=== PATIENT | female | born 1990 | race Caucasian/White ===

== ENCOUNTER 2018-07-03 13:00 | Observation (INO) | payer BC ==
--- OUTSIDE RECORDS SUMMARY | 2018-07-03 13:05 | XMS REPORT | Continuity of Care Document ---
:1990 External Reference #:[id number] Author Name RoberthMohini ji Care Team Providers Name Role Phone Leonila Palacios MD Primary Care Physician Unavailable Payers Type Date Identification Numbers Payment Provider Subscriber Policy Number: [id number] [employer] Katie Clarke PayID: [id number] [address] [address] [place] [address] Advance Directives Description No Information Available Problems Description No Information Family History Date Family Member(s) Problem(s) Comments Father Alive And Well Mother Alive And Well Social History Type Date Description Comments Sex Unknown Marital Status Occupation Currently Working ETOH Use Drinks 2 Alcoholic Beverages Per Week Tobacco Use Start: Unknown Patient has never smoked Smoking Status Reviewed: 07/02/18 Patient has never smoked Exercise Type/Frequency Exercises regularly Allergies, Adverse Reactions, Alerts Description No Known Drug Allergies Medications Medication Date Status Form Strength Qnty SIG Indications Ordering Provider Loestrin /0 Active Tablets 1.5-30mg-mc take as Unknown 1.5/30 (21) 000 g directed Immunizations Description No Information Available Vital Signs Date Vital Result Comment 07/02/2018 10:58am Height 66 inches 5'6" Weight 145.00 lb Heart Rate 78 /min BP Systolic Sitting 102 mmHg BP Diastolic Sitting 66 mmHg Respiratory Rate 16 /min Body Temperature 98.2 F BMI (Body Mass Index) 23.4 kg/m2 Results Description No Information Available Procedures Description No Information Available Encounters Description No Information Available Plan of Treatment 07/02/2018 - Shai Gomez, MDR10.11 Right upper quadrant painNew Labs: Liver Function Panel, Scheduled: 07/02/18Basic Metabolic Panel, Scheduled: 07/02Amylase, Scheduled: 07/02/18Lipase, Scheduled: 07/02/18CBC Auto Diff, Scheduled: 07/02/18Comments:concern for cholecystitis, will check labs-cbc,lfts, amylase lipase, as well as ultrasound, possible ct scan
[2018-07-03] MEDS ORDERED: Acetaminophen TAB* 325 MG PO PRN (14:32)
[2018-07-03] MEDS ORDERED: Morphine VIAL* 4 MG/ML VIAL (1 ml vial) IV PRN (14:33)
[2018-07-03] MEDS ORDERED: Ondansetron INJ* 2 MG/ML VIAL IV PRN ×2 (14:33→17:52)
[2018-07-03] MEDS ORDERED: Piperacillin/Tazobac ADVAN(*) 3.375 GM in NS 0.9% 100 ML* 100 ML IVPB ONE (15:00)
[2018-07-03] MEDS ORDERED: Propofol* 10 MG/ML 20 ML BTL ONE ×2 (15:32→18:07)
[2018-07-03] MEDS ORDERED: Lidocaine 2% PF * 5 ML VIAL ONE (15:32)
[2018-07-03] MEDS ORDERED: fentaNYL* 50 MCG/ML 2 ML VIAL (100 MCG VIAL) ONE (15:32)
[2018-07-03] MEDS ORDERED: Cisatracurium* 2 MG/ML MDV 5 ML ONE (15:32)
[2018-07-03] MEDS ORDERED: Midazolam* 1 MG/ML 5 ML VIAL (5 MG) ONE (15:32)
[2018-07-03] MEDS ORDERED: Dexamethasone IV* 4 MG/ML 1 ML (4 MG) ONE (15:32)
[2018-07-03] MEDS ORDERED: Ondansetron INJ* 2 MG/ML VIAL ONE (15:32)
[2018-07-03] MEDS ORDERED: Remifentanil* 2 MG VIAL ONE (16:01)
[2018-07-03] MEDS ORDERED: Sodium Chloride 0.9%* 10 ML ONE (16:01)
[2018-07-03] MEDS ORDERED: Propofol* 500 MG/50 ML BTL ONE (16:01)
[2018-07-03] MEDS ORDERED: Ketorolac INJ* 30 MG/ML 1 ML VIAL ONE (17:38)
[2018-07-03] MEDS ORDERED: Naloxone* 0.4 MG/ML 1 ML VIAL IV PRN (17:52)
[2018-07-03] MEDS ORDERED: fentaNYL* 50 MCG/ML 2 ML VIAL (100 MCG VIAL) IV PRN (17:52)
[2018-07-03] MEDS ORDERED: HYDROcodone/ACETAMIN 5-325 MG* 1 TAB PO PRN (18:57)
[2018-07-03] MEDS ORDERED: Hydrocodone/Acetamin 10/325 1 TAB PO ONE (22:54)
[2018-07-03] MEDS: HYDROcodone/ACETAMIN 5-325 MG* 1 TAB PO PRN (22:55)
[2018-07-04] MEDS: HYDROcodone/ACETAMIN 5-325 MG* 1 TAB PO PRN (10:06)
--- NOTE | 2018-07-04 10:08 | OP ---
DATE OF OPERATION: 07/03/18 - ROOM #334 DATE OF : [birth year] SURGEON: Shai Gomez MD PRE-OP DIAGNOSIS: Appendicitis. POST-OP DIAGNOSIS: Appendicitis. OPERATIVE PROCEDURE: Laparoscopic appendectomy. INDICATIONS FOR PROCEDURE: Appendicitis by clinical exam and CT scan. Risks of surgery included but not limited to bleeding, infection, injury to intraabdominal contents including the bowel were explained to the patient who seemed understanding and agreed for the procedure and all questions were answered. DESCRIPTION OF PROCEDURE: The patient was taken to the operating room, placed supine. Preoperative antibiotics were given. After the successful induction of general endotracheal anesthesia, the abdomen was prepped and draped in sterile fashion. A time-out was performed identifying correct patient and procedure. A left lower quadrant 5 mm incision was made after local was applied and using an Optiview 5 mm port, the peritoneal cavity was entered. Pneumoperitoneum was achieved at 15 mmHg. A camera was placed in the abdomen. The abdomen was scanned. There was no obvious injury from trocar placement. A 12 mm umbilical trocar was placed and a 5 mm suprapubic trocar was placed all under direct visualization of the camera. She was placed in the Trendelenburg position, tilted slightly towards the left. The cecum was gently immobilized medially revealing the base of the appendix, which was obviously inflamed and adhered to the lateral and posterior peritoneal wall. The base was isolated and divided using a stapler. The appendix was then gently from the lateral and posterior wall using blunt dissection. The mesoappendix was then divided with 2 staple loads. A clip was placed on an oozing vessel. There was no further bleeding. The appendix was placed in an endobag and removed through the umbilical port site. The right lower quadrant was irrigated and aspirated dry. EBL minimal. Hemostasis was intact. There was no abscess. Some fluid from the pelvis was aspirated. There was no purulence. The fallopian tube and ovary appeared normal on both sides. The abdomen was scanned. There was no obvious injury noted or other abnormalities. Pneumoperitoneum was released from the abdomen. The midline fascia was closed with a single 0 Vicryl stitch. Skin was closed with Monocryl and then glue. She tolerated the procedure well. She was extubated and taken to recovery in stable condition. [id number]/[facility] #: [id number] [facility]
[2018-07-04 10:24] VITALS: BP 102/62
--- NOTE | 2018-07-04 16:16 | DS ---
CC: Dr. Leonila Palacios * DISCHARGE SUMMARY: DATE OF ADMISSION: 07/03/18 DATE OF DISCHARGE: 07/04/18 ATTENDING SURGEON: Dr. Shai Gomez.* (DICTATED BY ZAIRE REDMAN NP) HOSPITAL COURSE: Please refer to admission history and physical for admission details. The patient was taken to the operating room on 07/03/18 and underwent laparoscopic appendectomy. She has had an uneventful postoperative course, and as of the morning of discharge, was eating a regular diet, ambulating in the halls, urinating in large amounts, and had good pain control. PHYSICAL EXAMINATION: Afebrile. Vital signs are stable. Lungs: Breath sounds bilaterally clear and equal. Heart: Regular rate and rhythm. No murmurs or rubs. Abdomen: Active bowel sounds. Laparoscopic incision sites are intact with Dermabond glue; there is no surrounding erythema or drainage. There is appropriate incisional tenderness. Extremities: Nontender calves. IMPRESSION: Status post laparoscopic appendectomy, doing very well. PLAN: Discharge home today; discharge instructions were reviewed. A prescription for hydrocodone/acetaminophen was provided; she will have a followup appointment in our office on 07/07/18, with Dr. Gomez and she knows to call sooner with any concerns. ZAIRE REDMAN NP [id number]/[facility] #: [id number] [facility]
== END 2018-07-04 10:30 | disposition home or self-care (01) ==
LOC: SSU 13:01
PROVIDERS: ADMIT Surgery; ATTEND Surgery
DX: K37 Unspecified appendicitis (principal)
CPT/HCPCS: 88304; A9270-GY; G0378; J1100; J1885; J2250; J2405; J2543; J2704; J3010